=== PATIENT | female | born 1970 | race African-American/Black ===

== ENCOUNTER 2019-09-15 10:50 | Observation (INO) | payer MEDICARE, SELFPAY ==
--- NOTE | ~2019-09-15 | US_ITS ---
EXAMINATION: US soft tissue buttock RT DATE: 09/16/2019 13:03 INDICATION: Right buttock abscess. TECHNIQUE: Multiple grayscale and Doppler ultrasound images of the right buttock were obtained. COMPARISON: None FINDINGS: There is heterogeneous echogenicity of the subcutaneous fat in the right buttock. No absces s. IMPRESSION: 1. Heterogeneous echogenicity of the subcutaneous fat of the right buttock, consistent with inflammat ion. No abscess. Reviewed, dictated and finalized at location A. IMPRESSION: 1. Heterogeneous echogenicity of the subcutaneous fat of the right buttock, con sistent with inflammation. No abscess.
[2019-09-15 11:01] VITALS: BP 119/63; PULSE 110; RESP 16; TEMP 36.2; O2SAT 99
[2019-09-15 12:02] LABS: Basophils Percent Auto 0.2 % (0.2-1.2); Eosinophils Absolute Auto 0.4 K/mm3 (0-0.3); Eosinophils Percent Auto 3.9 % (0-4.4); Hematocrit 34.6 % (37.0-47.0); Hemoglobin 11.3 g/dL (12.0-15.0); Immature Granulocyte Absolute 0.05 K/mm3 (0.00-0.031); Immature Granulocyte Percent A 0.5 % (0-0.5); Lymphocytes Absolute Auto 1.99 K/mm3 (0.9-3.2); Mean Corpuscular HGB Conc 32.7 g/dl (32-36); Mean Corpuscular Hemoglobin 28.2 pg (26-34); Mean Corpuscular Volume 86.3 fl (80-100); Mean Platelet Volume 9.9 fl (7.4-10.4); Monocytes Absolute Auto 0.8 K/mm3 (0.1-0.6); Monocytes Percent Auto 7.5 % (2.6-8.5); Neutrophils Absolute Auto 7.2 K/mm3 (1.3-6.7); Neutrophils Percent Auto 68.9 % (45.5-73.1); Platelet Count Result 340 k/mm3 (150-375); Red Blood Count 4.01 M/mm3 (4.2-5.4); Red Cell Distribution Width 11.9 % (11.5-14.5); White Blood Count 10.5 K/mm3 (4.5-10.0)
[2019-09-15 12:16] LABS: Magnesium 1.4 mg/dL (1.6-2.3); Phosphorus 3.8 mg/dL (2.5-4.5)
[2019-09-15 12:18] LABS: Alanine Aminotransferase 22 U/L (4-35); Albumin Level 3.7 g/dL (3.5-5.1); Alkaline Phosphatase 140 U/L (38-126); Aspartate Amino Transferase 21 U/L (14-36); Bilirubin,Total 0.4 mg/dL (0.2-1.3); Blood Urea Nitrogen 5 mg/dL (7-17); Calcium 9.1 mg/dL (8.4-10.2); Carbon Dioxide 31 mmol/L (22-30); Chloride 96 mmol/L (98-107); Estimated CRCL calculation 145 ml/min; Estimated Glomerular Filt Rate > 60; Glucose 380 mg/dL (65-105); Potassium 3.8 mmol/L (3.4-5.0); Sodium 136 mmol/L (137-145)
[2019-09-15] MEDS: SODIUM CHLORIDE 0.9% IV 1,000 ML 999 ML IV CONT ×2 (12:20)
[2019-09-15 12:29] LABS: Beta-Hydroxybutyrate/Acetoacetate 0.22 mmol/L (0.02-0.27)
[2019-09-15 13:11] LABS: CRP 21.9 mg/dL (<1.0)
[2019-09-15] MEDS: MAGNESIUM SULF 2 GM/WATER 50ML 2 GM/50 ML BAG IVPB (13:42)
--- NOTE | 2019-09-15 14:17 | ED.GENADULT ---
HPI - General Adult General Chief complaint: Wound/Laceration <MARIA LUISA De La Cruz Last Filed: 09/15/19 14:37> Stated complaint: right leg wound <MARIA LUISA De La Cruz Last Filed: 09/15/19 14:37> Time Seen by Provider: 09/15/19 11:07 <MARIA LUISA De La Cruz Last Filed: 09/15/19 14:37> Source: patient <MARIA LUISA De La Cruz Last Filed: 09/15/19 14:37> Mode of arrival: ambulatory <MARIA LUISA De La Cruz Last Filed: 09/15/19 14:37> Limitations: no limitations <MARIA LUISA De La Cruz Last Filed: 09/15/19 14:37> History of Present Illness HPI narrative: Patient is a 48-year-old female who presents per private vehicle to emergency department for evaluation of wound to the right posterior thigh that is been present for 1 week gradually worsening patient notes some drainage on her close. Patient notes that during this period she has had some chills nausea and that her blood sugars have increased with levels as high as 500 patient on arrival to emergency department is in the room noting moderate aching pain. Patient has not taken anything for symptoms denies similar occurrence in the past <MARIA LUISA De La Cruz Last Filed: 09/15/19 14:37> Related Data Home medications: Home Medications Medication Instructions Recorded Confirmed Chava GoelPen U-100 Insulin 09/15/19 atorvastatin 10 mg PO DAILY 09/15/19 ferrous sulfate 325 mg PO DAILY 09/15/19 gabapentin 300 mg PO DAILY 09/15/19 lisinopril-hydrochlorothiazide 1 tablet PO DAILY 09/15/19 metformin 1,000 mg PO DAILY 09/15/19 naproxen 500 mg PO BID 09/15/19 omeprazole 20 mg PO DAILY 09/15/19 paroxetine HCl 10 mg PO QAM 09/15/19 <MARIA LUISA De La Cruz Last Filed: 09/15/19 14:37> Allergies/adverse reactions: Allergies Allergy/AdvReac Type Severity Reaction Status Date / Time No Known Allergies Allergy Verified 09/15/19 11:05 <MARIA LUISA De La Cruz Last Filed: 09/15/19 14:37> Review of Systems Review of Systems: All systems reviewed & are unremarkable except as noted in HPI and below <Salvador Hilton PA-C - Last Filed: 09/15/19 14:37> [facility] Past Medical History Medical History: Medical History (Updated 09/15/19 @ 14:37 by Salvador Hilton PA-C) Diabetes mellitus Obesity <Salvador Hilton PA-C - Last Filed: 09/15/19 14:37> Family History Family History: Family History (Updated 09/15/19 @ 16:08 by Mary Lou Merrill RN) Mother Heart failure Diabetes mellitus Father Diabetes mellitus Hypertension Dementia Sibling Diabetes mellitus <Salvador Hilton PA-C - Last Filed: 09/15/19 14:37> Social History Social History: Social History Years smoked: 3 Smoking status: Current every day smoker Tobacco type: cigarettes Alcohol intake: never Substance use: never Substance use type: does not use Gender identity (if verbalized by the patient): Female Sexual Orientation (if Verbalized by the Patient): Straight or Heterosexual <Salvador Hiltno PA-C - Last Filed: 09/15/19 14:37> Exam Narrative: Exam Narrative: GENERAL: Well-appearing, obese, and in no acute distress. HEAD: Normocephalic, atraumatic. EYES: PERRLA and EOMI. ENT: Nares clear, no rhinorrhea or epistaxis. Mucous membranes moist. CHEST: Clear to auscultation. No respiratory distress. No wheezes rales or rhonchi HEART: Regular rate and rhythm. No murmur heard. EXTREMITIES: Normal range of motion. No edema. SKIN: Warm, dry, no rash. Patient with red tender swollen slightly erythematous area to the right posterior thigh just below the buttock. Some clear drainage on the underwear NEURO: No focal deficits. Alert and oriented x3. PSYCH: Normal mood and affect. <Salvador Hilton PA-C - Last Filed: 09/15/19 14:37> Course Course Emergency Course: Patient in the room in no distress aware of case findings daniela
[2019-09-15 15:01] VITALS: BP 148/88; PULSE 88; RESP 20; TEMP 36.3; O2SAT 99
[2019-09-15 15:40] VITALS: BP 130/78; PULSE 88; RESP 18; O2SAT 98
--- NOTE | 2019-09-15 15:41 | PC.NURSE ---
pt transported to 2nd floor with Vancomycin still infusing.
--- NOTE | 2019-09-15 16:03 | ADMGEN ---
This patient, Meli Coley, was admitted to Medical Room 252-. Patient/family oriented to hospital policies and general routines including ID bracelet, bed and alarms, visiting hours, pain management, procedures, bathroom and other care routines, personal items, smoking policy, room service/diet, and visiting hours. Valuables list has been completed. Information on how to activate the Rapid Response Team has been discussed. Patient/Family are encouraged to report perceived risks to care and to ask questions if they do not understand what they are told or what they should do. Patient in bed resting comfortably at this time. Will continue to monitor patient.
[2019-09-15 16:06] VITALS: BP 123/67; PULSE 84; RESP 20; TEMP 36.3; O2SAT 100
[2019-09-15 16:08] VITALS: BMI 41.0
[2019-09-15 16:28] LABS: Glucose Point of Care 443 (65-105)
[2019-09-15] MEDS: INSULIN ASPART (*BKC) 100 UNITS/ML SUB-Q (17:03)
[2019-09-15] MEDS: COLLAGENASE OINT 30 GM TUBE 1 APPLIC TOPICAL (17:04)
--- NOTE | 2019-09-15 17:15 | PM.IMHP ---
H&P: HPI History of Present Illness Chief complaint: Cellulitis right leg Narrative: Meli Coley is a 48 year old female code has a history of having diabetes. She stated that she has had a boil on her right buttocks for at least 2 weeks. She thought it was a dry patch in kept trying to put lotion on it. She had her male friend look at it today and he told her that was getting worse. She stated that it was draining yellowish green drainage. She started to have fever and chills. The patient stated that her blood sugars have been in the 500s. She states that they are usually high but not that high. She would give exact numbers. The patient stated that she had this will on her butt for 2 weeks but it just started draining about a week ago. Wound care consult was placed and they have already reviewed the ulcerated area and [place] was prescribed. White count 10.5. H&H 11.3 and 34.5. The patient was given magnesium IV. Started on Primaxin and vancomycin. She was started on IV fluids as well. Date of service 09/15/2019 Review of Systems Review of Systems: All systems reviewed & are unremarkable except as noted in HPI and below Constitutional: Constitutional: Reports as per HPI and Reports no additional constitutional complaints Eyes: Eyes: Reports as per HPI and Reports no additional eye complaints ENT: Reports system reviewed and no additional complaints, except as documented and Reports Normal hearing present Cardiovascular: Cardiovascular: Reports no additional cardiovascular complaints Respiratory: Respiratory: Reports no additional respiratory complaints and Reports no additional respiratory complaints Gastrointestinal: Gastrointestinal: Reports as per HPI and Reports no additional gastrointestinal complaints Musculoskeletal: Musculoskeletal: Reports no additional musculoskeletal complaints Integumentary/Breasts: Skin/Breast: Reports system reviewed and no additional complaints, except as docu and Reports as per HPI Neurologic: Reports system reviewed and no additional complaints, except as documented, Reports as per HPI and Reports Normal hearing present Psychiatric: Psychiatric: Reports no additional psychiatric complaints and Reports as per HPI Endocrine: Endocrine: Reports no additional endocrine complaints Hematologic/Lymphatic: Hematologic/Lymphatic: Reports no additional hematologic/lymphatic complaints Allergic/Immunologic: Allergic/Immunologic: Reports no additional allergic/immunologic complaints [facility] Past Medical History Medical History (Updated 09/15/19 @ 17:30 by Mila Dewitt NP) Chronic GERD Depression Diabetes mellitus Insulin-dependent HTN (hypertension), malignant Hyperlipidemia Iron deficiency anemia Neuropathy 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 She is single. She has 4 children. She is currently not employed. She does not have a durable power attorney lawyer for health care and she desires to be a full code. She has a significant other. No marijuana or illicit drugs. No alcohol. Years smoked: 3 Smoking status: Current every day smoker Tobacco type: cigarettes Alcohol intake: never Substance use: never Substance use type: does not use Gender identity (if verbalized by the patient): Female Sexual Orientation (if Verbalized by the Patient): Straight or Heterosexual Meds Home Medications and Allergies Home Medications Medication Instructions Recorded Confirmed Type Bas
[2019-09-15 17:56] VITALS: BP 134/67; PULSE 87; RESP 20; TEMP 36.5; O2SAT 99
[2019-09-15] MEDS: FAMOTIDINE 20 MG/2 ML VIAL IV PUSH (20:11)
--- NOTE | 2019-09-15 20:53 | PHAR ---
HOME MED VERIFED ALTON LEVY 44 UNITS SUBQ AT BEDTIME
[2019-09-15 22:00] VITALS: BP 131/68; PULSE 89; RESP 16; TEMP 36.7; O2SAT 98
[2019-09-15 22:07] LABS: Glucose Point of Care 265 (65-105)
[2019-09-16] VITALS (7 sets, daily range): BP systolic 115–138; BP diastolic 50–85; PULSE 62–89; RESP 12–20; TEMP 36–36.8; O2SAT 98–99
[2019-09-16 05:10] LABS: Basophils Percent Auto 0.2 % (0.2-1.2); Eosinophils Absolute Auto 0.5 K/mm3 (0-0.3); Eosinophils Percent Auto 5.2 % (0-4.4); Hematocrit 30.1 % (37.0-47.0); Hemoglobin 9.8 g/dL (12.0-15.0); Immature Granulocyte Absolute 0.02 K/mm3 (0.00-0.031); Immature Granulocyte Percent A 0.2 % (0-0.5); Lymphocytes Absolute Auto 2.89 K/mm3 (0.9-3.2); Lymphocytes Percent Auto 33.4 % (18.3-44.2); Mean Corpuscular HGB Conc 32.6 g/dl (32-36); Mean Corpuscular Hemoglobin 28.3 pg (26-34); Mean Platelet Volume 9.5 fl (7.4-10.4); Monocytes Absolute Auto 0.8 K/mm3 (0.1-0.6); Monocytes Percent Auto 9.1 % (2.6-8.5); Neutrophils Absolute Auto 4.5 K/mm3 (1.3-6.7); Neutrophils Percent Auto 51.9 % (45.5-73.1); Platelet Count Result 307 k/mm3 (150-375); Red Blood Count 3.46 M/mm3 (4.2-5.4); Red Cell Distribution Width 11.9 % (11.5-14.5); White Blood Count 8.7 K/mm3 (4.5-10.0)
[2019-09-16 05:19] LABS: Blood Urea Nitrogen 5 mg/dL (7-17); Calcium 8.1 mg/dL (8.4-10.2); Carbon Dioxide 26 mmol/L (22-30); Chloride 99 mmol/L (98-107); Estimated CRCL calculation 168 ml/min; Estimated Glomerular Filt Rate > 60; Glucose 335 mg/dL (65-105); Potassium 3.6 mmol/L (3.4-5.0); Sodium 132 mmol/L (137-145)
[2019-09-16 08:00] LABS: Glucose Point of Care 314 (65-105)
[2019-09-16 08:33] LABS: Magnesium 1.7 mg/dL (1.6-2.3)
[2019-09-16] MEDS: INSULIN ASPART (*BKC) 100 UNITS/ML SUB-Q ×3 (08:41→18:08)
[2019-09-16] MEDS: FAMOTIDINE 20 MG/2 ML VIAL IV PUSH ×2 (08:43→22:11)
[2019-09-16] MEDS: NAPROXEN 500 MG TABLET PO ×2 (08:44→18:09)
[2019-09-16] MEDS: lisinopriL 20 MG TABLET PO (08:44)
[2019-09-16] MEDS: PANTOPRAZOLE 40 MG TABLET PO (08:44)
[2019-09-16] MEDS: hydroCHLOROthiazide 12.5 MG CAPSULE PO (08:44)
[2019-09-16] MEDS: GABAPENTIN 300 MG CAPSULE PO (08:44)
[2019-09-16] MEDS: ATORVASTATIN 10 MG TABLET PO (08:44)
[2019-09-16] MEDS: PARoxetine 10 MG TABLET PO (08:44)
[2019-09-16] MEDS: CALCIUM CARBONATE (OSCAL) 500 MG TABLET PO (08:44)
[2019-09-16] MEDS: COLLAGENASE OINT 30 GM TUBE 1 APPLIC TOPICAL (08:45)
[2019-09-16] MEDS: FERROUS SULFATE 324 MG TABLET PO (09:27)
[2019-09-16] MEDS: metFORMIN HCL 500 MG TABLET 1000 MG PO (09:27)
--- NOTE | 2019-09-16 10:54 | PM.IMPN ---
Progress Note: A&P Assessment and Plan (1) Infected skin ulcer limited to breakdown of skin: Code(s): L98.491 - Non-pressure chronic ulcer of skin of other sites limited to breakdown of skin; L08.9 - Local infection of the skin and subcutaneous tissue, unspecified Status: Acute Assessment and Plan: Patient has an open wound to right buttock area which seems to be the source of her infection. Wound care evaluated the patient and recommended applying daily Santyl ointment to open wound and cover with a Mepilex border dressing. patient was started on IV antibiotics which included vancomycin and Primaxin leukocytosis [place] [address]72 to 8700 within normal range. Her CRP was elevated at 21.9 on arrival. Due to her wound and fluctuance I will order a ultrasound of the area to rule out any underlying abscess. Continue IV antibiotics overnight and monitor her labs and CRP levels. If everything is stable in the morning she could potentially be discharged home to follow-up with wound care as an outpatient continue monitoring patient's symptoms. (2) Diabetes mellitus: Code(s): E11.9 - Type 2 diabetes mellitus without complications Status: Chronic Assessment and Plan: her serum glucose this morning was 338. will continue her oral metformin and 44 units of long-acting insulin HS will add sliding scale insulin due to her elevated glucose I would like to continue monitoring her overnight and make adjustments to her diabetes regiment will check a hemoglobin A1c in the Morning Will consult system programmer as well as the dietitian for uncontrolled diabetes continue monitoring patient's glucose ACHS. hypoglycemic protocol in place. (3) HTN (hypertension), malignant: Code(s): I10 - Essential (primary) hypertension Status: Acute Assessment and Plan: blood pressure has been stable. Continue with lisinopril and hydrochlorothiazide. (4) Hyperlipidemia: Code(s): E78.5 - Hyperlipidemia, unspecified Status: Chronic Assessment and Plan: Continue with atorvastatin (5) Depression: Code(s): F32.9 - Major depressive disorder, single episode, unspecified Status: Chronic Assessment and Plan: Continue with Paxil. (6) Chronic GERD: Code(s): K21.9 - Gastro-esophageal reflux disease without esophagitis Status: Chronic Assessment and Plan: Continue with omeprazole. (7) Neuropathy: Code(s): G62.9 - Polyneuropathy, unspecified Status: Chronic Assessment and Plan: Continue with gabapentin. (8) Iron deficiency anemia: Code(s): D50.9 - Iron deficiency anemia, unspecified Status: Chronic Assessment and Plan: Continue with ferrous sulfate. Time Spent With Patient Time with patient: 25 - 35 minutes Subjective Date/time seen: 09/16/19 10:54 Interval history: Date of Service 09/16/2019: The patient states she is feeling much better today. She is not having any fevers, chills and her pain is improved to her left buttocks. She denies much drainage from her left buttocks as well. She denies any chest pain, shortness of breath, cough, nausea, vomiting, abdominal pain, leg swelling, calf pain or any other symptoms at this time. Review of Systems Review of Systems: All systems reviewed & are unremarkable except as noted in HPI and below Exam Narrative: Exam Narrative: General: 48-year-old woman laying on her left side in bed. Appears comfortable. In no acute distress. Skin: There is a 4 cm b
[2019-09-16 11:30] LABS: Glucose Point of Care 327 (65-105)
[2019-09-16] MEDS: MAGNESIUM SULF 2 GM/WATER 50ML 2 GM/50 ML BAG IVPB (11:55)
[2019-09-16 16:54] LABS: Glucose Point of Care 327 (65-105)
--- NOTE | 2019-09-16 17:03 | PCDIET ---
Nutrition Consult Complete: Pt current nutrition is [facility] Nutrition recommendation: Agree Last recorded weight is 108.4 kg. Additional Notes: Pt with uncontrolled DM. On an DBCC diet. Glucose 327 today. No A1c. Pt on insulin at home but was not aware of what a carb or protein were. Intake here is good, 100%x3. She does like most protein and veggies. Handout and edu given on a consistent carb diet. We reviewed where carbs are found and how carbs effect blood sugar. We discussed my plate method of meal planning with focus on non starchy veggies and protein with up to 45g of carbs (approx 3 fists) at each meal. We reviewed label reading for finding carbs on a label. We will continue to monitor every seven days.
[2019-09-16 22:23] LABS: Glucose Point of Care 302 (65-105)
[2019-09-17] VITALS: BP 139/75; PULSE 70; RESP 18; TEMP 36.2; O2SAT 100
[2019-09-17 01:33] LABS: Vancomycin Trough 9.6 ug/mL (10.0-20.0)
[2019-09-17 04:00] VITALS: BP 147/72; PULSE 81; RESP 20; TEMP 36.4; O2SAT 100
[2019-09-17 05:28] LABS: Basophils Percent Auto 0.6 % (0.2-1.2); Eosinophils Absolute Auto 0.8 K/mm3 (0-0.3); Eosinophils Percent Auto 11.1 % (0-4.4); Hemoglobin 10.6 g/dL (12.0-15.0); Immature Granulocyte Absolute 0.04 K/mm3 (0.00-0.031); Immature Granulocyte Percent A 0.6 % (0-0.5); Lymphocytes Absolute Auto 2.54 K/mm3 (0.9-3.2); Lymphocytes Percent Auto 35.2 % (18.3-44.2); Mean Corpuscular HGB Conc 32.1 g/dl (32-36); Mean Corpuscular Volume 87.3 fl (80-100); Mean Platelet Volume 9.4 fl (7.4-10.4); Monocytes Absolute Auto 0.5 K/mm3 (0.1-0.6); Monocytes Percent Auto 7.1 % (2.6-8.5); Neutrophils Absolute Auto 3.3 K/mm3 (1.3-6.7); Neutrophils Percent Auto 45.4 % (45.5-73.1); Platelet Count Result 352 k/mm3 (150-375); Red Blood Count 3.78 M/mm3 (4.2-5.4); Red Cell Distribution Width 11.8 % (11.5-14.5); White Blood Count 7.2 K/mm3 (4.5-10.0)
[2019-09-17 05:39] LABS: Blood Urea Nitrogen 7 mg/dL (7-17); Calcium 8.6 mg/dL (8.4-10.2); Carbon Dioxide 28 mmol/L (22-30); Chloride 100 mmol/L (98-107); Estimated CRCL calculation 168 ml/min; Estimated Glomerular Filt Rate > 60; Glucose 334 mg/dL (65-105); Magnesium 1.7 mg/dL (1.6-2.3); Sodium 134 mmol/L (137-145)
[2019-09-17 05:49] LABS: CRP 12.6 mg/dL (<1.0)
[2019-09-17 06:45] LABS: Hemoglobin A1C > 14.0 % (<5.7)
[2019-09-17 07:46] LABS: Glucose Point of Care 272 (65-105)
[2019-09-17 08:00] VITALS: PULSE 81; RESP 20; O2SAT 100
[2019-09-17] MEDS: CALCIUM CARBONATE (OSCAL) 500 MG TABLET PO (09:19)
[2019-09-17] MEDS: COLLAGENASE OINT 30 GM TUBE 1 APPLIC TOPICAL (09:19)
[2019-09-17] MEDS: NAPROXEN 500 MG TABLET PO ×2 (09:19→16:53)
[2019-09-17] MEDS: PARoxetine 10 MG TABLET PO (09:20)
[2019-09-17] MEDS: FERROUS SULFATE 324 MG TABLET PO (09:20)
[2019-09-17] MEDS: metFORMIN HCL 500 MG TABLET 1000 MG PO (09:20)
[2019-09-17] MEDS: GABAPENTIN 300 MG CAPSULE PO (09:20)
[2019-09-17] MEDS: lisinopriL 20 MG TABLET PO (09:20)
[2019-09-17] MEDS: hydroCHLOROthiazide 12.5 MG CAPSULE PO (09:20)
[2019-09-17] MEDS: ATORVASTATIN 10 MG TABLET PO (09:20)
[2019-09-17] MEDS: PANTOPRAZOLE 40 MG TABLET PO (09:20)
[2019-09-17] MEDS: INSULIN ASPART (*BKC) 100 UNITS/ML SUB-Q ×2 (09:21→12:15)
[2019-09-17 10:00] VITALS: BP 132/67; PULSE 73; RESP 16; TEMP 36.3; O2SAT 98
[2019-09-17] MEDS: FAMOTIDINE 20 MG/2 ML VIAL IV PUSH (10:44)
[2019-09-17 11:05] VITALS: BMI 41.0
[2019-09-17] MEDS: INSULIN ASPART (*BKC) 100 UNITS/ML 7 UNITS SUB-Q (12:16)
[2019-09-17 12:21] LABS: Glucose Point of Care 329 (65-105)
[2019-09-17 14:00] VITALS: BP 147/69; PULSE 78; RESP 16; TEMP 36.3; O2SAT 100
--- NOTE | 2019-09-17 15:36 | PM.DS ---
DS: Admitting Diagnosis Admitting Diagnosis Admitting Diagnosis: Non-pressure chronic ulcer of skin of other sites limited to breakdown of skin DS: Discharge Diagnosis Discharge Diagnosis (1) Infected skin ulcer limited to breakdown of skin: Code(s): L98.491 - Non-pressure chronic ulcer of skin of other sites limited to breakdown of skin; L08.9 - Local infection of the skin and subcutaneous tissue, unspecified Status: Acute Assessment and Plan: Patient has an open wound to right buttock area which seems to be the source of her infection. Wound care evaluated the patient and recommended applying daily Santyl ointment to open wound and cover with a Mepilex border dressing. patient was started on IV antibiotics which included vancomycin and Primaxin leukocytosis [place] [address] to 7200 within normal range. Her CRP was elevated at 21.9 on arrival and improved to 12.4 today with IV antibiotics. US of wound showed no findings of abscess. Wound care does not feel she needs to follow up with them outpatient and requests for her to just see her doctor for wound monitoring. She is feeling much better at this time without any complaints. Wound is looking better and will need to continue with dressing changes daily. She is stable for discharge home to continue on oral antibiotics, Levaquin and Doxycycline for broad spectrum coverage.She will need to follow-up with her primary care provider within 1 week. Patient understands and agrees with the plan all questions answered. (2) Diabetes mellitus: Code(s): E11.9 - Type 2 diabetes mellitus without complications Status: Chronic Assessment and Plan: her serum glucose this morning was 334. Hemoglobin A1c was greater than 14 which is not well controlled at all. She had not been receiving her 44 units of long-acting insulin while here. Will have her continue her oral metformin and 44 units of long-acting insulin HS Our early childhood educator aide and dietitian came to talk to the patient and educated her on diabetes. Patient states she has a glucometer and lancets, needles and everything that she needs to check her sugars daily. She feels comfortable checking it 5 times a day and will continue doing after discharge. (3) HTN (hypertension), malignant: Code(s): I10 - Essential (primary) hypertension Status: Acute Assessment and Plan: blood pressure has been stable. Continue with lisinopril and hydrochlorothiazide. (4) Hyperlipidemia: Code(s): E78.5 - Hyperlipidemia, unspecified Status: Chronic Assessment and Plan: Continue with atorvastatin (5) Depression: Code(s): F32.9 - Major depressive disorder, single episode, unspecified Status: Chronic Assessment and Plan: Continue with Paxil. (6) Chronic GERD: Code(s): K21.9 - Gastro-esophageal reflux disease without esophagitis Status: Chronic Assessment and Plan: Continue with omeprazole. (7) Neuropathy: Code(s): G62.9 - Polyneuropathy, unspecified Status: Chronic Assessment and Plan: Continue with gabapentin. (8) Iron deficiency anemia: Code(s): D50.9 - Iron deficiency anemia, unspecified Status: Chronic Assessment and Plan: Continue with ferrous sulfate. DS: Summary Hospital Course Reason for hospitalization: Patient is a 48-year-old woman with a history of uncontrolled diabetes, who presented to the emergency room with worsening pain, redness and discharge to her wound on her right buttock
[2019-09-17 16:29] LABS: Glucose Point of Care 118 (65-105)
--- NOTE | 2019-09-22 11:23 | PC.NURSE ---
patient dc on levoquin and doxy.
== END 2019-09-17 18:28 | disposition home or self-care (01) ==
LOC: ANHED 14:37 → ANH2MED 14:53
PROVIDERS: Emergency Medicine Emergency Medical Services; Physician Assistant; Admitting Provider Family Medicine; Emergency Provider General Practice; PCP Internal Medicine; Visit Provider Family Medicine
DX: E11.622 Type 2 diabetes mellitus with other skin ulcer (principal); L97.121 Non-pressure chronic ulcer of left thigh limited to breakdown of skin; L08.9 Local infection of the skin and subcutaneous tissue, unspecified; B95.1 Streptococcus, group B, as the cause of diseases classified elsewhere; B95.62 Methicillin resistant Staphylococcus aureus infection as the cause of diseases classified elsewhere; F32.9 Major depressive disorder, single episode, unspecified; I10 Essential (primary) hypertension; E78.5 Hyperlipidemia, unspecified; D50.9 Iron deficiency anemia, unspecified; E11.40 Type 2 diabetes mellitus with diabetic neuropathy, unspecified; K21.9 Gastro-esophageal reflux disease without esophagitis; F17.210 Nicotine dependence, cigarettes, uncomplicated; E66.01 Morbid (severe) obesity due to excess calories; Z68.41 Body mass index [BMI] 40.0-44.9, adult; Z79.84 Long term (current) use of oral hypoglycemic drugs
CPT/HCPCS: 36415; 76705; 80048; 80053; 80202; 82010; 82948; 83036; 83735; 84100; 85025; 86140; 87040; 87070; 87147; 87186; 87205; 96365; 96366; 96367; 96375; 96376; 99285; A9270; G0378; J0131; J0743; J1815; J3370; J3475; J7030

== ENCOUNTER 2019-09-23 15:47 | Emergency (ER) | payer MEDICARE, SELFPAY ==
[2019-09-23 15:49] VITALS: BP 158/74; PULSE 79; RESP 20; TEMP 37.4; O2SAT 99
--- NOTE | 2019-09-23 16:34 | ED.SKABFB ---
HPI - Skin/Abscess/Foreign Bdy General Chief complaint: Skin/Abscess/Foreign Body Stated complaint: Boil to buttock Time Seen by Provider: 09/23/19 16:11 Source: patient Mode of arrival: ambulatory History of Present Illness HPI narrative: This is a 48-year-old female that presents the emergency department for drainage from right buttock wound that she has noted since yesterday. Reports she was recently admitted for cellulitis of this wound. Was discharged home on oral antibiotics. She did not vegetable picker these antibiotics until yesterday. Reports her blood sugars have been in the 200s. She has an appointment to follow-up with her primary at the end of this week. Denies fever, erythema, or edema. Related Data Home Medications Medication Instructions Recorded Confirmed Basaglar KwikPen U-100 Insulin 44 units HS 09/15/19 09/15/19 atorvastatin 10 mg PO DAILY 09/15/19 09/15/19 calcium carbonate [Calcium 600] 600 mg PO DAILY 09/15/19 09/15/19 ferrous sulfate 325 mg PO DAILY 09/15/19 09/15/19 gabapentin 300 mg PO DAILY 09/15/19 09/15/19 lisinopril-hydrochlorothiazide 1 tablet PO DAILY 09/15/19 09/15/19 metformin 1,000 mg PO DAILY 09/15/19 09/15/19 naproxen 500 mg PO BID 09/15/19 09/15/19 omeprazole 20 mg PO DAILY 09/15/19 09/15/19 paroxetine HCl 10 mg PO DAILY 09/15/19 09/15/19 Allergies Allergy/AdvReac Type Severity Reaction Status Date / Time No Known Allergies Allergy Verified 09/15/19 11:05 Review of Systems Review of Systems: Narrative: CONSTITUTIONAL: Denies fever SKIN: Reports wound All systems reviewed & are unremarkable except as noted in HPI and below PMFSH Past Medical History Medical History (Updated 09/23/19 @ 16:59 by Maddy Christian PA-C) Chronic GERD Depression Diabetes mellitus Insulin-dependent HTN (hypertension), malignant Hyperlipidemia Iron deficiency anemia Neuropathy 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 She is single. She has 4 children. She is currently not employed. She does not have a durable power tax associate attorney for health care and she desires to be a full code. She has a significant other. No marijuana or illicit drugs. No alcohol. Years smoked: 3 Smoking status: Current every day smoker Tobacco type: cigarettes Alcohol intake: never Substance use: never Substance use type: does not use Gender identity (if verbalized by the patient): Female Exam Narrative: Exam Narrative: GENERAL: Well-appearing, well-nourished, and in no acute distress. HEAD: Normocephalic, atraumatic. EYES: EOMI. EXTREMITIES: Normal range of motion. No edema. Right gluteal fold with 7 cm skin ulceration. No surrounding erythema or edema. No abnormal drainage. SKIN: Warm, dry, no rash. NEURO: No focal deficits. Alert and oriented x3. PSYCH: Normal mood and affect Course Vital Signs Vital signs: Vital Signs Temperature 99.4 F 09/23/19 15:49 Pulse Rate 79 09/23/19 15:49 Respiratory Rate 20 09/23/19 15:49 Blood Pressure 158/74 H 09/23/19 15:49 Pulse Oximetry 99 09/23/19 15:49 Temperature 99.4 F 09/23/19 15:49 Pulse Rate 79 09/23/19 15:49 Respiratory Rate 20 09/23/19 15:49 Blood Pressure 158/74 H 09/23/19 15:49 Pulse Oximetry 99 09/23/19 15:49 MDM - Skin/Abscess/Foreign Bdy MDM Narrative Medical decision making narrative: Patient presents to the emergency department for right leg wound, which she was recently admitted here and given IV antibiotics. Upon discharge she was supposed to be taking levofloxacin and doxycycline. She did not fill these until yesterday. Patient is afebrile and nontoxic-appearing. No obvious signs of infection on exam. Patient's wound was c
[2019-09-23 17:54] VITALS: BP 142/70; PULSE 80; RESP 20; O2SAT 99
== END 2019-09-23 17:56 | disposition home or self-care (01) ==
PROVIDERS: Emergency Provider Emergency Medicine; PCP Internal Medicine
DX: E11.40 Type 2 diabetes mellitus with diabetic neuropathy, unspecified (principal); E11.622 Type 2 diabetes mellitus with other skin ulcer; L98.419 Non-pressure chronic ulcer of buttock with unspecified severity; Z79.84 Long term (current) use of oral hypoglycemic drugs; K21.9 Gastro-esophageal reflux disease without esophagitis; I10 Essential (primary) hypertension; E78.5 Hyperlipidemia, unspecified; D50.9 Iron deficiency anemia, unspecified; E66.9 Obesity, unspecified; Z68.34 Body mass index [BMI] 34.0-34.9, adult; F17.210 Nicotine dependence, cigarettes, uncomplicated
CPT/HCPCS: 99282

== ENCOUNTER 2019-10-21 12:48 | Emergency (ER) | payer MEDICARE, SELFPAY ==
[2019-10-21 12:55] VITALS: BP 109/75; PULSE 89; RESP 17; TEMP 35.9; O2SAT 100
--- NOTE | 2019-10-21 15:35 | ED.ALLEREA ---
HPI - Allergic Reaction General Chief complaint: Allergic Reaction Stated complaint: allergic reaction Time Seen by Provider: 10/21/19 13:14 History of Present Illness HPI narrative: Patient is a 48-year-old female who presents the ER with sloughing of her skin. She reports since starting an antibiotic 3 weeks ago for a leg wound she started having skin peel off of her hands on the palmar aspect. He also extends around to the back of her hands and involves her waist and abdomen and feet. She seen her PCP who switched her from her original antibiotic to doxycycline which she completed 1 week ago. She has also been applying triamcinolone cream to her hands as well as clotrimazole and clindamycin to her under her breasts. No purulent drainage or redness. Denies any exposures to harsh chemicals or persistent washing of the hands. Related Data Home Medications Medication Instructions Recorded Confirmed Basaglar KwikPen U-100 Insulin 44 units HS 09/15/19 09/15/19 atorvastatin 10 mg PO DAILY 09/15/19 09/15/19 calcium carbonate [Calcium 600] 600 mg PO DAILY 09/15/19 09/15/19 ferrous sulfate 325 mg PO DAILY 09/15/19 09/15/19 gabapentin 300 mg PO DAILY 09/15/19 09/15/19 lisinopril-hydrochlorothiazide 1 tablet PO DAILY 09/15/19 09/15/19 metformin 1,000 mg PO DAILY 09/15/19 09/15/19 naproxen 500 mg PO BID 09/15/19 09/15/19 omeprazole 20 mg PO DAILY 09/15/19 09/15/19 paroxetine HCl 10 mg PO DAILY 09/15/19 09/15/19 Allergies Allergy/AdvReac Type Severity Reaction Status Date / Time No Known Allergies Allergy Verified 09/15/19 11:05 Review of Systems Review of Systems: All systems reviewed & are unremarkable except as noted in HPI and below Constitutional: Constitutional: Denies chills, Denies fever(s) and Denies weakness Gastrointestinal: Gastrointestinal: Denies nausea and Denies vomiting Integumentary/Breasts: Skin/Breast: Denies pruritus, Denies erythema and Reports rash PMFSH Past Medical History Medical History (Updated 10/21/19 @ 15:41 by Nehemias Khan MD) Chronic GERD Depression Diabetes mellitus Insulin-dependent HTN (hypertension), malignant Hyperlipidemia Iron deficiency anemia Neuropathy 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 She is single. She has 4 children. She is currently not employed. She does not have a durable power assistant attorney general for health care and she desires to be a full code. She has a significant other. No marijuana or illicit drugs. No alcohol. Years smoked: 3 Smoking status: Current every day smoker Tobacco type: cigarettes Alcohol intake: never Substance use: never Substance use type: does not use Gender identity (if verbalized by the patient): Female Exam Narrative: Exam Narrative: GENERAL: Well-appearing, well-nourished, and in no acute distress. HEAD: Normocephalic, atraumatic. CHEST: Clear to auscultation. No respiratory distress. HEART: Regular rate and rhythm. Normal peripheral pulses. EXTREMITIES: Normal range of motion. No edema. SKIN: Warm, dry. Dry flaking skin over the hips of the back and her upper chest. Patient's palms have large thick peeling skin wrapping around to the volar aspect of the hand and extending into the fingers. No pustules or vesicles. No evidence of cellulitis. NEURO: Alert and oriented x3. PSYCH: Normal mood and affect. Course Course Emergency Course: Appears similar to dyshidrotic eczema. Recommend continue steroid cream and follow-up with a engineering mgr. Not consistent with SJS or TPN. Vital Signs Vital signs: Vital Signs Temperature 96.6 F L 10/21/19 12:55 Pulse Rate 89 10/21/19 12:55 Respiratory Rate 17 10/21/19 12:55 Blood
[2019-10-21 15:52] VITALS: BP 118/76; PULSE 78; RESP 16; O2SAT 100
== END 2019-10-21 15:52 | disposition home or self-care (01) ==
PROVIDERS: Emergency Provider Emergency Medicine; PCP Internal Medicine
DX: L30.9 Dermatitis, unspecified (principal); K21.9 Gastro-esophageal reflux disease without esophagitis; F32.9 Major depressive disorder, single episode, unspecified; E11.9 Type 2 diabetes mellitus without complications; Z79.4 Long term (current) use of insulin; I10 Essential (primary) hypertension; E78.5 Hyperlipidemia, unspecified; F17.210 Nicotine dependence, cigarettes, uncomplicated
CPT/HCPCS: 99281

== ENCOUNTER 2022-01-15 16:31 | Emergency (ER) | payer MEDICARE, MEDICAID, SELFPAY ==
[2022-01-15] VITALS (12 sets, daily range): BP systolic 81–115; BP diastolic 56–86; PULSE 83–96; RESP 12–18; TEMP 36.6; O2SAT 94–99
--- NOTE | ~2022-01-15 | XR_ITS ---
EXAMINATION: XR chest 1V portable Exam Date/Time: 01/15/2022 19:20 PROCESSING REP HISTORY: cough, hypotensive; hx of DM Comparison: None available. RESULT: Lines, tubes, and devices: None. Lungs and pleura: Low lung volumes. rNo focal consolidation or pneumothorax. Cardiomediastinal silhouette: Mildly dilated central pulmonary arteries, as can be seen with pulmona ry arterial hypertension. Other: No acute osseous or upper abdominal finding. IMPRESSION: No acute cardiopulmonary process. Reviewed, dictated and finalized at location K. ESSING REP
[2022-01-15 18:13] LABS: Basophils Percent Auto 0.2 % (0.2-1.2); Eosinophils Absolute Auto 0.2 K/mm3 (0-0.3); Eosinophils Percent Auto 2.8 % (0-4.4); Hematocrit 37.3 % (37.0-47.0); Hemoglobin 12.5 g/dL (12.0-15.0); Immature Granulocyte Absolute 0.03 K/mm3 (0.00-0.031); Immature Granulocyte Percent A 0.4 % (0-0.5); Lymphocytes Absolute Auto 3.93 K/mm3 (0.9-3.2); Lymphocytes Percent Auto 46.6 % (18.3-44.2); Mean Corpuscular HGB Conc 33.5 g/dl (32-36); Mean Corpuscular Hemoglobin 29.1 pg (26-34); Mean Corpuscular Volume 86.7 fl (80-100); Mean Platelet Volume 9.6 fl (7.4-10.4); Monocytes Absolute Auto 0.6 K/mm3 (0.1-0.6); Monocytes Percent Auto 7.2 % (2.6-8.5); Neutrophils Absolute Auto 3.6 K/mm3 (1.3-6.7); Neutrophils Percent Auto 42.8 % (45.5-73.1); Platelet Count Result 322 k/mm3 (150-375); Red Cell Distribution Width 12.4 % (11.5-14.5); White Blood Count 8.4 K/mm3 (4.5-10.0)
[2022-01-15 18:25] LABS: Alanine Aminotransferase 24 U/L (6-35); Albumin Level 4.1 g/dL (3.5-5.1); Alkaline Phosphatase 117 U/L (38-126); Anion Gap 11 mmol/L (8-16); Aspartate Amino Transferase 27 U/L (14-36); Bilirubin,Total 0.4 mg/dL (0.2-1.3); Blood Urea Nitrogen 31 mg/dL (7-17); Calcium 9.2 mg/dL (8.4-10.2); Carbon Dioxide 29 mmol/L (22-30); Chloride 100 mmol/L (98-107); Estimated CRCL calculation 98 ml/min; Estimated Glomerular Filt Rate > 60; Glucose 129 mg/dL (65-110); Magnesium 1.9 mg/dL (1.6-2.3); Phosphorus 3.5 mg/dL (2.5-4.5); Potassium 3.5 mmol/L (3.4-5.0); Sodium 140 mmol/L (137-145)
[2022-01-15 18:29] LABS: Beta-Hydroxybutyrate/Acetoacetate 0.07 mmol/L (0.02-0.27)
[2022-01-15 18:46] LABS: Appearance Urine Slightly Cloudy (Clear); Bilirubin Urine Negative (Negative); Blood Urine Negative (Negative); Color Urine Yellow (Yellow); Glucose Urine UA 3+ mg/dL (Negative); Ketones Urine Negative (Negative); Leukocyte Esterase Ur Negative LEU/UL (Negative); Nitrate Urine Negative (Negative); Protein Urine Negative (Negative); Specific Grav Ur 1.015 (1.001-1.035); Urobilinogen Urine 0.2 mg/dL (<2.0)
[2022-01-15 18:49] LABS: Mucus Urine Rare /lpf; Squamous Epithelial Cell Urine Occasional /hpf (Few)
[2022-01-15 18:51] LABS: Add Urine Microscopic? YES
[2022-01-15] MEDS: ONDANSETRON HCL ODT 4 MG TABLET PO (19:15)
[2022-01-15] MEDS: LACTATED RINGERS 1,000 ML 999 ML IV CONT (19:15)
--- NOTE | 2022-01-15 19:23 | ED.RECABL ---
HPI - Recheck/Abnormal Lab/Rx General Chief Complaint: Recheck/Abnormal Lab/Rx Stated Complaint: weakness; hyperglycemia Time Seen by Provider: 01/15/22 19:04 History of Present Illness HPI narrative: Patient was at work when her colleague thought that she was not looking very good, she states that she was feeling slightly nauseous and worried that her blood sugar was high and that she did give herself some extra insulin today. States she hasn't really eaten or drank much today. Endorses slight cough, but no chest pain, difficulty breathing, abdominal pain, dysuria. Related Data Home Medications Medication Instructions Recorded Confirmed Basaglar KwikPen U-100 Insulin 44 units HS 09/15/19 09/15/19 atorvastatin 10 mg tablet 10 mg PO DAILY 09/15/19 09/15/19 calcium carbonate 600 mg calcium 600 mg PO DAILY 09/15/19 09/15/19 (1,500 mg) tablet (Calcium) ferrous sulfate 325 mg (65 mg 325 mg PO DAILY 09/15/19 09/15/19 iron) tablet gabapentin 300 mg capsule 300 mg PO DAILY 09/15/19 09/15/19 lisinopril 20 1 tablet PO DAILY 09/15/19 09/15/19 mg-hydrochlorothiazide 12.5 mg tablet metformin 1,000 mg tablet 1,000 mg PO DAILY 09/15/19 09/15/19 naproxen 500 mg tablet 500 mg PO BID 09/15/19 09/15/19 omeprazole 20 mg tablet,delayed 20 mg PO DAILY 09/15/19 09/15/19 release paroxetine HCl 10 mg tablet 10 mg PO DAILY 09/15/19 09/15/19 Allergies Allergy/AdvReac Type Severity Reaction Status Date / Time No Known Allergies Allergy Verified 01/15/22 18:07 Review of Systems Review of Systems: CONST: Tired HEENT: No sore throat C/V: No chest pain RESP: Slight cough GI: Reports nausea : No dysuria. M/S: No joint pain. SKIN: No rash. NEURO: [No headache or focal numbness or weakness] PSYCH: [No depression] [facility] Past Medical History Medical History Chronic GERD Depression Diabetes mellitus Insulin-dependent HTN (hypertension), malignant Hyperlipidemia Iron deficiency anemia Neuropathy Hands and feet secondary to diabetes Obesity Surgical History Surgical History H/O tubal ligation Family History Family History Mother Heart failure Diabetes mellitus Father Diabetes mellitus Hypertension Dementia Sibling Diabetes mellitus Social History Social History Social History: The patient told me that she is down to a couple cigarettes a day. She is single. She has 4 children. She is currently not employed. She does not have a durable power trademark attorney for health care and she desires to be a full code. She has a significant other. No marijuana or illicit drugs. No alcohol. Years smoked: 3 Smoking status: Current every day smoker Tobacco type: cigarettes Alcohol intake: never Substance use: never Substance use type: does not use Gender identity (if verbalized by the patient): Female Sexual Orientation (if Verbalized by the Patient): Straight or Heterosexual Exam Narrative: EXAMINATION OF ORGAN SYSTEMS/BODY AREAS: Constitutional: Vital signs per nursing GENERAL:[No acute distress, non-toxic appearing.] HEAD: Normal with no signs of head trauma. EYES: EOMI, conjunctiva normal ENT: Hearing grossly intact LUNGS: Nonlabored breathing. HEART: [Regular rate and rhythm] ABD: [Soft], [nontender to palpation] EXT: Normal range of motion SKIN: [No rashes or lesions.] NEURO: [Alert and oriented x 3. No gross focal sensory or strength deficits.] PSYCH: Normal affect Course Vital Signs Vital signs: Vital Signs Temperature 98 F 01/15/22 16:42 Pulse Rate 96 01/15/22 16:42 Respiratory Rate 18 01/15/22 16:42 Blood Pressure 101/86 01/15/22 16:42 Pulse Oximetry 96 01/15/22 16:42 Temperature 98 F 01/15/22 16:42 Pulse Rate 85 01/15/22 19:31 Respiratory Rate 15
[2022-01-15 19:29] LABS: Glucose Point of Care 128 mg/dl (65-105)
[2022-01-15] MEDS: FAMOTIDINE 20 MG TABLET PO (19:39)
[2022-01-15 19:49] LABS: Lactic Acid Reflex 1.4 mmol/L (0.7-2.0)
[2022-01-15 20:32] LABS: Influenza A QL RT-PCR Negative (Negative); Influenza B QL RT-PCR Negative (Negative); RSV RNA, RT-PCR Negative (Negative); SARS-CoV-2 RNA PCR Negative
== END 2022-01-15 20:18 | disposition home or self-care (01) ==
PROVIDERS: Emergency Medicine; Emergency Provider Emergency Medicine; PCP Internal Medicine
DX: E11.40 Type 2 diabetes mellitus with diabetic neuropathy, unspecified (principal); R53.83 Other fatigue; K21.9 Gastro-esophageal reflux disease without esophagitis; Z79.84 Long term (current) use of oral hypoglycemic drugs; I10 Essential (primary) hypertension; E78.5 Hyperlipidemia, unspecified; F32.A Depression, unspecified; E66.9 Obesity, unspecified; Z68.32 Body mass index [BMI] 32.0-32.9, adult; F17.210 Nicotine dependence, cigarettes, uncomplicated; Z86.2 Personal history of diseases of the blood and blood-forming organs and certain disorders involving the immune mechanism; Z79.4 Long term (current) use of insulin; Z20.822 Contact with and (suspected) exposure to COVID-19
CPT/HCPCS: 36415; 71045; 80053; 81001; 81025; 82010; 82948; 83605; 83735; 84100; 85025; 87637; 96360; 99283; A9270; J7120

== ENCOUNTER 2022-05-10 15:32 | Emergency (ER) | payer OTHER, SELFPAY ==
[2022-05-10 15:35] VITALS: BP 148/72; PULSE 110; RESP 20; TEMP 36.9; O2SAT 97
[2022-05-10] MEDS: diphenhydrAMINE HCl CAP 25 MG CAPSULE PO (17:00)
--- NOTE | 2022-05-10 17:41 | ED.GENADULT ---
HPI - General Adult General Chief complaint: Allergic Reaction Stated complaint: hives from clindamycin Time Seen by Provider: 05/10/22 16:23 History of Present Illness HPI narrative: Patient is a 51-year-old female who presents ER with rash. Has had a red rash for couple days but started having peeling of her chest and abdominal wall today. She has been on clindamycin for a possible infection to her great toe on the left side. She reports her toes better. No fevers or chills or sweats. No difficulty breathing or swallowing. She has some dry skin in the corners of her mouth that causes some pain when she opens wide. Related Data Home Medications Medication Instructions Recorded Confirmed Basaglar KwikPen U-100 Insulin 44 units HS 09/15/19 09/15/19 atorvastatin 10 mg tablet 10 mg PO DAILY 09/15/19 09/15/19 calcium carbonate 600 mg calcium 600 mg PO DAILY 09/15/19 09/15/19 (1,500 mg) tablet (Calcium) ferrous sulfate 325 mg (65 mg 325 mg PO DAILY 09/15/19 09/15/19 iron) tablet gabapentin 300 mg capsule 300 mg PO DAILY 09/15/19 09/15/19 lisinopril 20 1 tablet PO DAILY 09/15/19 09/15/19 mg-hydrochlorothiazide 12.5 mg tablet metformin 1,000 mg tablet 1,000 mg PO DAILY 09/15/19 09/15/19 naproxen 500 mg tablet 500 mg PO BID 09/15/19 09/15/19 omeprazole 20 mg tablet,delayed 20 mg PO DAILY 09/15/19 09/15/19 release paroxetine HCl 10 mg tablet 10 mg PO DAILY 09/15/19 09/15/19 Allergies Allergy/AdvReac Type Severity Reaction Status Date / Time clindamycin Allergy Rash Verified 05/10/22 16:22 Review of Systems Constitutional: Constitutional: Denies chills and Denies fever(s) ENT: Denies dysphagia, Denies nasal congestion and Denies sore throat Gastrointestinal: Gastrointestinal: Denies nausea and Denies vomiting Integumentary/Breasts: Skin/Breast: Reports erythema and Reports rash PMFSH Past Medical History Medical History Chronic GERD Depression Diabetes mellitus Insulin-dependent HTN (hypertension), malignant Hyperlipidemia Iron deficiency anemia Neuropathy Hands and feet secondary to diabetes Obesity Surgical History Surgical History H/O tubal ligation Family History Family History Mother Heart failure Diabetes mellitus Father Diabetes mellitus Hypertension Dementia Sibling Diabetes mellitus Social History Social History Social History: The patient told me that she is down to a couple cigarettes a day. She is single. She has 4 children. She is currently not employed. She does not have a durable power county attorney for health care and she desires to be a full code. She has a significant other. No marijuana or illicit drugs. No alcohol. Years smoked: 3 Smoking status: Current every day smoker Tobacco type: cigarettes Alcohol intake: never Substance use: never Substance use type: does not use Gender identity (if verbalized by the patient): Female Sexual Orientation (if Verbalized by the Patient): Straight or Heterosexual Exam Narrative: GENERAL: Well-appearing, well-nourished, and in no acute distress. HEAD: Normocephalic, atraumatic. ENT: Mucous membranes moist. No intraoral lesions. CHEST: Clear to auscultation. No respiratory distress. HEART: Regular rate and rhythm. Normal peripheral pulses. EXTREMITIES: Normal range of motion. No edema. SKIN: Warm, dry. Red warm rash is blanching diffusely across body. Between the breasts and upper chest there is sloughing of dry skin without weeping. Small areas of sloughing to the abdominal wall. NEURO: Alert and oriented x3. PSYCH: Normal mood and affect. Course Course Emergency Course: Discussed treatment plan patient verbalized understanding. Discussed continued discontinuation of medication. Patient with tai
[2022-05-10 17:57] VITALS: BP 139/85; PULSE 100; RESP 15; O2SAT 97
== END 2022-05-10 17:59 | disposition home or self-care (01) ==
PROVIDERS: Emergency Provider Emergency Medicine; PCP Internal Medicine
DX: L27.1 Localized skin eruption due to drugs and medicaments taken internally (principal); T36.8X5A Adverse effect of other systemic antibiotics, initial encounter; E11.9 Type 2 diabetes mellitus without complications; I10 Essential (primary) hypertension; E78.5 Hyperlipidemia, unspecified; F17.210 Nicotine dependence, cigarettes, uncomplicated
CPT/HCPCS: 99283; A9270

== ENCOUNTER 2022-07-03 11:52 | Emergency (ER) | payer MEDICARE, SELFPAY ==
[2022-07-03 11:56] VITALS: BP 105/57; PULSE 89; RESP 18; TEMP 36.6; O2SAT 100
--- NOTE | 2022-07-03 12:31 | ED.NAVMDI ---
HPI - Nausea/Vomiting/Diarrhea General Chief complaint: Nausea/Vomiting/Diarrhea Stated complaint: vomiking Time Seen by Provider: 07/03/22 12:23 History of Present Illness HPI Narrative: 51-year-old female presents with right upper quadrant pain and nausea x2 days. Patient states she has been throwing up everything she eats. Patient denies fevers, diarrhea. Patient states she cannot keep anything down. Patient states blood sugars have been in the 300. Patient denies history of abdominal issues. Patient states she had a tubal ligation 20 years ago. Patient takes metformin for diabetes. Onset (ago): day(s) (2) Description of vomiting: food contents Associated nausea: Yes Associated abdominal pain: Yes Related Data Home Medications Medication Instructions Recorded Confirmed Basaglar KwikPen U-100 Insulin 44 units HS 09/15/19 09/15/19 atorvastatin 10 mg tablet 10 mg PO DAILY 09/15/19 09/15/19 calcium carbonate 600 mg calcium 600 mg PO DAILY 09/15/19 09/15/19 (1,500 mg) tablet (Calcium) ferrous sulfate 325 mg (65 mg 325 mg PO DAILY 09/15/19 09/15/19 iron) tablet gabapentin 300 mg capsule 300 mg PO DAILY 09/15/19 09/15/19 lisinopril 20 1 tablet PO DAILY 09/15/19 09/15/19 mg-hydrochlorothiazide 12.5 mg tablet metformin 1,000 mg tablet 1,000 mg PO DAILY 09/15/19 09/15/19 naproxen 500 mg tablet 500 mg PO BID 09/15/19 09/15/19 omeprazole 20 mg tablet,delayed 20 mg PO DAILY 09/15/19 09/15/19 release paroxetine HCl 10 mg tablet 10 mg PO DAILY 09/15/19 09/15/19 Allergies Allergy/AdvReac Type Severity Reaction Status Date / Time clindamycin Allergy Rash Verified 05/10/22 16:22 Review of Systems Review of Systems: A 10 system review of systems was completed on the patient and is negative except for what is stated in the HPI. Nursing and ancillary documentation was reviewed. [facility] Past Medical History Medical History Chronic GERD Depression Diabetes mellitus Insulin-dependent HTN (hypertension), malignant Hyperlipidemia Iron deficiency anemia Neuropathy Hands and feet secondary to diabetes Obesity Surgical History Surgical History H/O tubal ligation Family History Family History Mother Heart failure Diabetes mellitus Father Diabetes mellitus Hypertension Dementia Sibling Diabetes mellitus Social History Social History Social History: The patient told me that she is down to a couple cigarettes a day. She is single. She has 4 children. She is currently not employed. She does not have a durable power city attorney for health care and she desires to be a full code. She has a significant other. No marijuana or illicit drugs. No alcohol. Years smoked: 3 Smoking status: Current every day smoker Tobacco type: cigarettes Alcohol intake: never Substance use: never Substance use type: does not use Gender identity (if verbalized by the patient): Female Sexual Orientation (if Verbalized by the Patient): Straight or Heterosexual Exam Narrative: GENERAL: Well-appearing, well-nourished, and in no acute distress. HEAD: Normocephalic, atraumatic. EYES: PERRLA and EOMI. ENT: Nares clear, no rhinorrhea or epistaxis. Mucous membranes moist. NECK: Supple. CHEST: Clear to auscultation. No respiratory distress. HEART: Regular rate and rhythm. No murmur heard. Normal peripheral pulses. ABDOMEN: Soft, tenderness to RUQ, nondistended, normal active bowel sounds. EXTREMITIES: Normal range of motion. No edema. SKIN: Warm, dry, no rash. NEURO: No focal deficits. Alert and oriented x3. PSYCH: Normal mood and affect. Course Course Emergency Course: Lab work here is negative. Patient's nausea improved with Zofran and fluids. Will discharge home with p.o. present for Miguel
[2022-07-03] MEDS: ONDANSETRON INJ 4 MG/2 ML VIAL IV PUSH (12:50)
[2022-07-03] MEDS: SODIUM CHLORIDE 0.9% IV 1,000 ML 999 ML IV CONT (12:51)
[2022-07-03 12:58] LABS: Basophils Percent Auto 0.2 % (0.2-1.2); Eosinophils Absolute Auto 0.2 K/mm3 (0-0.3); Eosinophils Percent Auto 2.6 % (0-4.4); Hematocrit 35.6 % (37.0-47.0); Immature Granulocyte Absolute 0.03 K/mm3 (0.00-0.031); Immature Granulocyte Percent A 0.4 % (0-0.5); Lymphocytes Absolute Auto 3.81 K/mm3 (0.9-3.2); Lymphocytes Percent Auto 45.6 % (18.3-44.2); Mean Corpuscular HGB Conc 33.7 g/dl (32-36); Mean Corpuscular Hemoglobin 28.8 pg (26-34); Mean Corpuscular Volume 85.6 fl (80-100); Mean Platelet Volume 9.8 fl (7.4-10.4); Monocytes Absolute Auto 0.6 K/mm3 (0.1-0.6); Monocytes Percent Auto 7.2 % (2.6-8.5); Neutrophils Absolute Auto 3.7 K/mm3 (1.3-6.7); Platelet Count Result 338 k/mm3 (150-375); Red Blood Count 4.16 M/mm3 (4.2-5.4); Red Cell Distribution Width 12.3 % (11.5-14.5); White Blood Count 8.4 K/mm3 (4.5-10.0)
[2022-07-03 13:07] LABS: Lactic Acid Reflex 1.3 mmol/L (0.7-2.0)
[2022-07-03 13:09] LABS: Alanine Aminotransferase 24 U/L (6-35); Albumin Level 4.4 g/dL (3.5-5.1); Alkaline Phosphatase 87 U/L (38-126); Anion Gap 8 mmol/L (8-16); Aspartate Amino Transferase 28 U/L (14-36); Bilirubin,Total 0.5 mg/dL (0.2-1.3); Blood Urea Nitrogen 39 mg/dL (7-17); Calcium 9.9 mg/dL (8.4-10.2); Carbon Dioxide 29 mmol/L (22-30); Chloride 103 mmol/L (98-107); Estimated CRCL calculation 92 ml/min; Estimated Glomerular Filt Rate > 60; Glucose 100 mg/dL (65-110); Lipase 36 U/L (23-300); Magnesium 1.7 mg/dL (1.6-2.3); Potassium 3.8 mmol/L (3.4-5.0); Sodium 140 mmol/L (137-145)
[2022-07-03 13:26] LABS: Fractional Inspired Oxygen 21 %; HCO3 VBG 22.3 mEq/l (24.0-30.0); PCO2 VBG 36.5 mmHg (42.0-48.0); PO2 VBG 72.7 mmHg (35.0-45.0)
[2022-07-03 13:27] LABS: Device ROOM AIR; pH VBG 7.403 (7.300-7.400)
[2022-07-03 14:05] VITALS: BP 113/73; PULSE 76; RESP 16
[2022-07-03 14:14] LABS: Hemoglobin A1C > 14.0 % (<5.7)
== END 2022-07-03 14:07 | disposition home or self-care (01) ==
PROVIDERS: Emergency Provider Nurse Practitioner Family
DX: K52.9 Noninfective gastroenteritis and colitis, unspecified (principal); R11.2 Nausea with vomiting, unspecified; F17.210 Nicotine dependence, cigarettes, uncomplicated; K21.9 Gastro-esophageal reflux disease without esophagitis; F32.A Depression, unspecified; E11.9 Type 2 diabetes mellitus without complications; Z79.4 Long term (current) use of insulin; I10 Essential (primary) hypertension; E78.5 Hyperlipidemia, unspecified; D64.9 Anemia, unspecified
CPT/HCPCS: 36415; 80053; 82803; 83036; 83605; 83690; 83735; 85025; 96361; 96374; 99284; J2405; J7030

== ENCOUNTER 2022-07-13 15:55 | Emergency (ER) | payer MEDICARE, MEDICAID, SELFPAY ==
[2022-07-13 16:09] VITALS: BP 161/80; PULSE 90; RESP 14; TEMP 36.9; O2SAT 100
--- NOTE | 2022-07-13 16:20 | ED.DIZZY ---
HPI - Dizziness General Chief Complaint: Dizziness Stated Complaint: Dizziness/Weakness Time Seen by Provider: 07/13/22 16:20 Source: patient Mode of arrival: ambulatory Limitations: no limitations History of Present Illness HPI Narrative: Patient is a 51-year-old female who presents with dizziness last week while taking Keflex. Patient states she is not taking Keflex and has not had any dizziness since besides earlier today when she was out in the heat. Patient states she sat down and drink some cold water and cooled off and dizziness resolved. Denies any changes in vision or syncope. Patient reports wound on right foot has resolved. States she needs a note to return to work. Denies any numbness, tingling or weakness to extremities. Related Data Home Medications Medication Instructions Recorded Confirmed Basdonaldo AngélicajosePen U-100 Insulin 44 units HS 09/15/19 07/13/22 atorvastatin 10 mg tablet 10 mg PO DAILY 09/15/19 07/13/22 calcium carbonate 600 mg calcium 600 mg PO DAILY 09/15/19 07/13/22 (1,500 mg) tablet (Calcium) ferrous sulfate 325 mg (65 mg 325 mg PO DAILY 09/15/19 07/13/22 iron) tablet gabapentin 300 mg capsule 300 mg PO DAILY 09/15/19 07/13/22 lisinopril 20 1 tablet PO DAILY 09/15/19 07/13/22 mg-hydrochlorothiazide 12.5 mg tablet metformin 1,000 mg tablet 1,000 mg PO DAILY 09/15/19 07/13/22 paroxetine HCl 10 mg tablet 10 mg PO DAILY 09/15/19 07/13/22 allopurinol 100 mg tablet 100 mg PO BID 07/13/22 07/13/22 montelukast 10 mg tablet 10 mg PO DAILY 07/13/22 07/13/22 pantoprazole 20 mg tablet,delayed 20 mg PO DAILY 07/13/22 07/13/22 release semaglutide 3 mg tablet (Rybelsus) mg PO 07/13/22 Allergies Allergy/AdvReac Type Severity Reaction Status Date / Time clindamycin Allergy Rash Verified 07/13/22 16:01 Review of Systems Review of Systems: All systems reviewed & are unremarkable except as noted in HPI and below Constitutional: Constitutional: Denies body ache(s), Denies chills, Denies fatigue, Denies fever(s), Denies headache(s), Denies malaise and Denies weakness Eyes: Eyes: Denies blurry vision, Denies irritation and Denies loss of vision ENT: Denies otalgia, Denies headache(s), Denies nasal discharge, Denies sinus pain and Denies sore throat Cardiovascular: Cardiovascular: Denies chest pain, Denies irregular heart rhythm and Denies dyspnea Respiratory: Respiratory: Denies dyspnea Gastrointestinal: Gastrointestinal: Denies abdominal pain, Denies melena, Denies hematochezia, Denies diarrhea, Denies nausea and Denies vomiting Musculoskeletal: Musculoskeletal: Denies back pain, Denies myalgias and Denies arthralgias Integumentary/Breasts: Skin/Breast: Denies pruritus and Denies rash Neurologic: Reports dizziness, Denies headache(s), Denies loss of vision and Denies weakness Psychiatric: Psychiatric: Reports no additional psychiatric complaints Endocrine: Endocrine: Denies fatigue PMFSH Past Medical History Medical History Chronic GERD Depression Diabetes mellitus Insulin-dependent HTN (hypertension), malignant Hyperlipidemia Iron deficiency anemia Neuropathy Hands and feet secondary to diabetes Obesity Surgical History Surgical History H/O tubal ligation Family History Family History Mother Heart failure Diabetes mellitus Father Diabetes mellitus Hypertension Dementia Sibling Diabetes mellitus Social History Social History Social History: The patient told me that she is down to a couple cigarettes a day. She is single. She has 4 children. She is currently not employed. She does not have a durable power compliance attorney for health care and she desires to be a full code. She has a significant other. No marijuana or illicit drugs. No alcohol. Years smoked: 3 Smokin
[2022-07-13 16:27] LABS: Glucose Point of Care 286 mg/dl (65-105)
== END 2022-07-13 16:50 | disposition home or self-care (01) ==
PROVIDERS: Emergency Provider Nurse Practitioner Family; PCP Internal Medicine
DX: R42 Dizziness and giddiness (principal); T36.1X5A Adverse effect of cephalosporins and other beta-lactam antibiotics, initial encounter; K21.9 Gastro-esophageal reflux disease without esophagitis; E11.42 Type 2 diabetes mellitus with diabetic polyneuropathy; Z79.4 Long term (current) use of insulin; I10 Essential (primary) hypertension; E78.5 Hyperlipidemia, unspecified; D50.9 Iron deficiency anemia, unspecified; E66.9 Obesity, unspecified; Z68.37 Body mass index [BMI] 37.0-37.9, adult
CPT/HCPCS: 82948; 99212; G0463

== ENCOUNTER 2023-05-02 17:48 | Emergency (ER) | payer MEDICARE, MEDICAID, SELFPAY ==
--- NOTE | ~2023-05-02 | XR_ITS ---
EXAMINATION: XR chest 2V DATE: 05/02/2023 18:54 INDICATION: Dizziness. TECHNIQUE: Frontal and lateral views of the chest were obtained. COMPARISON: Chest single view 01/15/2022 FINDINGS: There is no pneumonia, pleural effusion, or pneumothorax. The heart size is normal. IMPRESSION: 1. No acute cardiopulmonary disease. Reviewed, dictated and finalized at location E. MACHINE MECHANIC
--- NOTE | 2023-05-02 17:51 | ECG_ITS ---
Measurements Intervals [place] Rate: 89 P: 44 LA: 166 QRS: 21 QRSD: 90 T: 44 QT: 355 QTc: 433 Interpretive Statements SINUS RHYTHM BORDERLINE R WAVE PROGRESSION, ANTERIOR LEADS CONSIDER INFERIOR INFARCT, AGE INDETERMINATE BASELINE ARTIFACT- I, II, III, AVR, AVL, AVF ABNORMAL ECG NO PREVIOUS ECG AVAILABLE FOR COMPARISON Electronically Signed On 05-02-2023 20:05:40 PETROLEUM ANALYST by Kt Ramon D.O.
--- NOTE | 2023-05-02 17:52 | ED.DIZZY ---
HPI - Dizziness General Chief Complaint: Dizziness <Maddy Christian PA-C - Last Filed: 05/04/23 18:41> Stated Complaint: periods of dizziness <Maddy Christian PA-C - Last Filed: 05/04/23 18:41> Time Seen by Provider: 05/02/23 17:52 <Maddy Christian PA-C - Last Filed: 05/04/23 18:41> Focused HPI: This is a 52 year old female that presents to the ER for dizziness. Ongoing today. Reports history of DM. She has not been able to check her blood sugar. Reports she feels like the room is spinning. Denies chest pain, shortness of breath or vomiting. GENERAL: Well-appearing, well-nourished, and in no acute distress. HEAD: Normocephalic, atraumatic. CHEST: No respiratory distress. HEART: Regular rate NEURO: ?Alert and oriented x3. Patient screened in triage and initial orders placed.? ?Additional care and disposition to be based upon?diagnostic testing and treatment. <Maddy Christian PA-C - Last Filed: 05/04/23 18:41> Focused HPI: This is a 52 year old female that presents to the ER for dizziness. Ongoing today. Reports history of DM. She has not been able to check her blood sugar. Reports she feels like the room is spinning. Denies chest pain, shortness of breath or vomiting. Patient also states that she has not been drinking as much water as she should be and is concerned that she is dehydrated. When further questioned regarding her dizziness, patient states that it is more of a lightheaded near syncopal episode rather than a room spinning episode. Patient also complaining of constipation. She does take daily iron pills. She is currently denying any neurological symptoms including any focal weakness, changes in vision, numbness and/or tingling. There are no other modifying, alleviating, or precipitating factors at this time. GENERAL: Well-appearing, well-nourished, and in no acute distress. HEAD: Normocephalic, atraumatic. CHEST: No respiratory distress. HEART: Regular rate NEURO: ?Alert and oriented x3. Patient screened in triage and initial orders placed.? ?Additional care and disposition to be based upon?diagnostic testing and treatment. <Esperanza Suarez MD - Last Filed: 05/03/23 05:28> Related Data Home Medications: Home Medications Medication Instructions Recorded Confirmed Chava Vinson U-100 Insulin 44 units HS 09/15/19 07/13/22 atorvastatin 10 mg tablet 10 mg PO DAILY 09/15/19 07/13/22 calcium carbonate 600 mg calcium 600 mg PO DAILY 09/15/19 07/13/22 (1,500 mg) tablet (Calcium) ferrous sulfate 325 mg (65 mg 325 mg PO DAILY 09/15/19 07/13/22 iron) tablet gabapentin 300 mg capsule 300 mg PO DAILY 09/15/19 07/13/22 lisinopril 20 1 tablet PO DAILY 09/15/19 07/13/22 mg-hydrochlorothiazide 12.5 mg tablet metformin 1,000 mg tablet 1,000 mg PO DAILY 09/15/19 07/13/22 paroxetine HCl 10 mg tablet 10 mg PO DAILY 09/15/19 07/13/22 allopurinol 100 mg tablet 100 mg PO BID 07/13/22 07/13/22 montelukast 10 mg tablet 10 mg PO DAILY 07/13/22 07/13/22 pantoprazole 20 mg tablet,delayed 20 mg PO DAILY 07/13/22 07/13/22 release semaglutide 3 mg tablet (Rybelsus) mg PO 07/13/22 <Maddy Christian PA-C - Last Filed: 05/04/23 18:41> Allergies/Adverse Reactions: Allergies Allergy/AdvReac Type Severity Reaction Status Date / Time clindamycin Allergy Rash Verified 07/13/22 16:01 <Maddy Christian PA-C - Last Filed: 05/04/23 18:41> Review of Systems Review of Systems: All systems are reviewed and are negative unless stated otherwise in the HPI. <Esperanza Suarez MD - Last Filed: 05/03/23 05:28> PMFSH Past Medical History Medical History: Medical History Chronic GERD Depression Diabetes mellitus Insulin-dependent HTN (hypertension), malignant Hyperlipidemia Iron deficiency anemia Neuropathy Hands and feet secondary to diabetes Obesity <Maddy Christian PA-C - Last Filed: 05/04/23 18:41> [facility]
[2023-05-02 18:41] LABS: Basophils Percent Auto 0.5 % (0.2-1.2); Eosinophils Absolute Auto 0.3 K/mm3 (0-0.3); Eosinophils Percent Auto 2.9 % (0-4.4); Hematocrit 41.1 % (37.0-47.0); Hemoglobin 13.1 g/dL (12.0-15.0); Immature Granulocyte Absolute 0.02 K/mm3 (0.00-0.031); Immature Granulocyte Percent A 0.2 % (0-0.5); Lymphocytes Absolute Auto 4.26 K/mm3 (0.9-3.2); Lymphocytes Percent Auto 48.7 % (18.3-44.2); Mean Corpuscular HGB Conc 31.9 g/dl (32-36); Mean Corpuscular Hemoglobin 28.3 pg (26-34); Mean Corpuscular Volume 88.8 fl (80-100); Mean Platelet Volume 10.5 fl (7.4-10.4); Monocytes Absolute Auto 0.6 K/mm3 (0.1-0.6); Monocytes Percent Auto 7.2 % (2.6-8.5); Neutrophils Absolute Auto 3.6 K/mm3 (1.3-6.7); Neutrophils Percent Auto 40.5 % (45.5-73.1); Platelet Count Result 333 k/mm3 (150-375); Red Blood Count 4.63 M/mm3 (4.2-5.4); Red Cell Distribution Width 12.9 % (11.5-14.5); White Blood Count 8.8 K/mm3 (4.5-10.0)
[2023-05-02 18:50] LABS: Prothrombin Time 13.2 Seconds (11.1-14.7)
[2023-05-02 18:51] LABS: Partial Thromboplastin Time 26.6 SECONDS (22.3-36.8)
[2023-05-02 18:52] LABS: Alanine Aminotransferase 22 U/L (6-35); Albumin Level 4.1 g/dL (3.5-5.1); Alkaline Phosphatase 97 U/L (38-126); Anion Gap 6 mmol/L (8-16); Aspartate Amino Transferase 28 U/L (14-36); Bilirubin,Total 0.4 mg/dL (0.2-1.3); Blood Urea Nitrogen 38 mg/dL (7-17); Calcium 9.4 mg/dL (8.4-10.2); Carbon Dioxide 31 mmol/L (22-30); Chloride 104 mmol/L (98-107); Estimated CRCL calculation 80 ml/min; Estimated Glomerular Filt Rate > 60; Glucose 150 mg/dL (65-110); Potassium 4.1 mmol/L (3.4-5.0); Sodium 141 mmol/L (137-145)
[2023-05-03] MEDS: SODIUM CHLORIDE 0.9% IV 1,000 ML 999 ML IV CONT (01:13)
[2023-05-03 02:00] VITALS: BP 129/91; PULSE 79; RESP 15; O2SAT 99
[2023-05-03 02:15] VITALS: BP 151/97; PULSE 78; RESP 15; O2SAT 100
[2023-05-03 02:43] VITALS: BP 135/79; PULSE 78; RESP 17; O2SAT 100
[2023-05-03 02:45] VITALS: BP 107/76; PULSE 81; RESP 15; O2SAT 99
== END 2023-05-03 02:47 | disposition home or self-care (01) ==
PROVIDERS: Physician Assistant; Emergency Provider Emergency Medicine; PCP Internal Medicine
DX: E86.0 Dehydration (principal); R42 Dizziness and giddiness; K59.03 Drug induced constipation; T45.4X5A Adverse effect of iron and its compounds, initial encounter; I10 Essential (primary) hypertension; E78.5 Hyperlipidemia, unspecified; E11.40 Type 2 diabetes mellitus with diabetic neuropathy, unspecified; E66.9 Obesity, unspecified; Z68.38 Body mass index [BMI] 38.0-38.9, adult; D50.9 Iron deficiency anemia, unspecified; K21.9 Gastro-esophageal reflux disease without esophagitis; F32.A Depression, unspecified; F17.210 Nicotine dependence, cigarettes, uncomplicated; Z79.4 Long term (current) use of insulin; Z79.84 Long term (current) use of oral hypoglycemic drugs; R94.31 Abnormal electrocardiogram [ECG] [EKG]
CPT/HCPCS: 36415; 71046; 80053; 85025; 85610; 85730; 93005; 96360; 99283; J7030

== ENCOUNTER 2023-08-31 12:19 | Emergency (ER) | payer MEDICARE, OTHER, MEDICAID, SELFPAY ==
--- NOTE | ~2023-08-31 | XR_ITS ---
EXAMINATION: XR hip LT 2V w AP pelvis DATE: 08/31/2023 14:12 INDICATION: Left groin and hip pain. TECHNIQUE: An anteroposterior view of the pelvis and 2 views of left hip were obtained. COMPARISON: None. FINDINGS: Bone alignment is normal. No fracture. There is mild osteoarthritis of the hips. There is a t least mild lumbar spondylosis. IMPRESSION: 1. Mild osteoarthritis of the hips. Reviewed, dictated and finalized at location A.
[2023-08-31 12:21] VITALS: BP 138/68; PULSE 78; RESP 16; TEMP 36.7; O2SAT 100
[2023-08-31 14:08] LABS: Appearance Urine Clear (Clear); Bilirubin Urine Negative (Negative); Blood Urine Negative (Negative); Color Urine Yellow (Yellow); Glucose Urine UA 3+ mg/dL (Negative); Ketones Urine Negative (Negative); Leukocyte Esterase Ur Negative LEU/UL (Negative); Nitrate Urine Negative (Negative); Protein Urine Negative (Negative); Specific Grav Ur 1.035 (1.001-1.035)
[2023-08-31 14:34] LABS: Add Urine Microscopic? NO
--- NOTE | 2023-08-31 14:41 | ED.GENADULT ---
HPI - General Adult General Chief complaint: Extremity Injury, Lower Stated complaint: left hip and leg pain Time Seen by Provider: 08/31/23 13:36 History of Present Illness HPI narrative: Patient is a 52-year-old female who presents to the emergency department this afternoon complaining of left hip pain. Patient states that she does have a history of osteoarthritis and normally this is managed by a combination of naproxen and acetaminophen. SHe was never told that she has osteoarthritis of her hip joints and is now concerned that her osteoarthritis has reached her hips. Patient states that today she took some acetaminophen which helped with the pain but did not completely resolve it and that she is still uncomfortable. She is also requesting something stronger for pain other than the naproxen and Tylenol as she continues to have pain despite taking these [id number] medications and wants something stronger to help her get over this flare. She denies any urinary symptoms including dysuria or hematuria but is requesting to be checked for urinary tract infection as well. No additional symptoms or concerns at this time. Related Data Home Medications Medication Instructions Recorded Confirmed Chava Vinson U-100 Insulin 44 units HS 09/15/19 07/13/22 atorvastatin 10 mg tablet 10 mg PO DAILY 09/15/19 07/13/22 calcium carbonate (Calcium 600) 600 mg PO DAILY 09/15/19 07/13/22 ferrous sulfate 325 mg (65 mg 325 mg PO DAILY 09/15/19 07/13/22 iron) tablet gabapentin 300 mg capsule 300 mg PO DAILY 09/15/19 07/13/22 lisinopril 20 1 tablet PO DAILY 09/15/19 07/13/22 mg-hydrochlorothiazide 12.5 mg tablet metformin 1,000 mg tablet 1,000 mg PO DAILY 09/15/19 07/13/22 paroxetine HCl 10 mg tablet 10 mg PO DAILY 09/15/19 07/13/22 allopurinol 100 mg tablet 100 mg PO BID 07/13/22 07/13/22 montelukast 10 mg tablet 10 mg PO DAILY 07/13/22 07/13/22 pantoprazole 20 mg tablet,delayed 20 mg PO DAILY 07/13/22 07/13/22 release semaglutide 3 mg tablet (Rybelsus) mg PO 07/13/22 Allergies Allergy/AdvReac Type Severity Reaction Status Date / Time clindamycin Allergy Rash Verified 07/13/22 16:01 Review of Systems Review of Systems: All systems are reviewed and are negative unless stated otherwise in the HPI. 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 She is single. She has 4 children. She is currently not employed. She does not have a durable power workers compensation defense attorney for health care and she desires to be a full code. She has a significant other. No marijuana or illicit drugs. No alcohol. Years smoked: 3 Smoking status: Current every day smoker Tobacco type: cigarettes Alcohol intake: never Substance use: never Substance use type: does not use Gender identity (if verbalized by the patient): Female Sexual Orientation (if Verbalized by the Patient): Straight or Heterosexual Exam Narrative: General: Alert, awake, afebrile, in no acute distress. HEENT: PERRL, no rhinorrhea, no post nasal drip, oropharynx clear. Cardiovascular: Regular rate and rhythm, no murmurs, rubs or gallops, no peripheral edema. Respiratory: Clear to auscultation bilaterally, no tachypnea, no wheezing, no rhonchi, no rubs
== END 2023-08-31 14:54 | disposition home or self-care (01) ==
PROVIDERS: Emergency Provider Emergency Medicine; PCP Internal Medicine
DX: M16.12 Unilateral primary osteoarthritis, left hip (principal); I10 Essential (primary) hypertension; E11.40 Type 2 diabetes mellitus with diabetic neuropathy, unspecified; E78.5 Hyperlipidemia, unspecified; E66.9 Obesity, unspecified; Z68.36 Body mass index [BMI] 36.0-36.9, adult; K21.9 Gastro-esophageal reflux disease without esophagitis; D50.9 Iron deficiency anemia, unspecified; F17.210 Nicotine dependence, cigarettes, uncomplicated; Z79.4 Long term (current) use of insulin; Z79.84 Long term (current) use of oral hypoglycemic drugs; Z79.899 Other long term (current) drug therapy
CPT/HCPCS: 73502; 81003; 99283

== ENCOUNTER 2023-11-17 08:51 | Emergency (ER) | payer OTHER, MEDICARE, MEDICAID, SELFPAY ==
--- NOTE | ~2023-11-17 | XR_ITS ---
EXAMINATION: XR foot LT min 3V DATE: 11/17/2023 10:02 INDICATION: Left second toe wound. TECHNIQUE: 4 views of left foot were obtained. COMPARISON: None. FINDINGS: Bone alignment is normal. No fracture. There is mild osteoarthritis of first metatarsophala ngeal joint and some of the midfoot joints. There are enthesophytes at the posterior and plantar aspe cts of calcaneal tuberosity. IMPRESSION: 1. Mild polyarticular osteoarthritis. 2. No evidence of osteomyelitis. Reviewed, dictated and finalized at location A.
[2023-11-17 09:04] VITALS: BP 138/87; PULSE 86; RESP 18; TEMP 36.8; O2SAT 99
[2023-11-17] MEDS: HYDROcodone/acetaminophen (*CRX) 5-325 MG TABLET 1 TAB PO (10:00)
--- NOTE | 2023-11-17 10:45 | ED.GENADULT ---
HPI - General Adult General Chief complaint: Wound/Laceration Stated complaint: possible insect bite Time Seen by Provider: 11/17/23 09:26 History of Present Illness HPI narrative: This is a 52-year-old female presenting to the ED with 2 complaints. First complaint is insect bite underneath her right breast. She noticed pain and swelling. She has never had an abscess before. Second complaint is pain in her left 2nd toe. Patient denies any trauma. She says that her toenail fell off. No ulcerations signs of infection. Patient denies fevers chills nausea vomiting diarrhea. No abdominal pain. She is compliant with diabetes medications. Related Data Home Medications Medication Instructions Recorded Confirmed Basaglar AngélicaikPen U-100 Insulin 44 units HS 09/15/19 07/13/22 atorvastatin 10 mg tablet 10 mg PO DAILY 09/15/19 07/13/22 calcium carbonate (Calcium 600) 600 mg PO DAILY 09/15/19 07/13/22 ferrous sulfate 325 mg (65 mg 325 mg PO DAILY 09/15/19 07/13/22 iron) tablet gabapentin 300 mg capsule 300 mg PO DAILY 09/15/19 07/13/22 lisinopril 20 1 tablet PO DAILY 09/15/19 07/13/22 mg-hydrochlorothiazide 12.5 mg tablet metformin 1,000 mg tablet 1,000 mg PO DAILY 09/15/19 07/13/22 paroxetine HCl 10 mg tablet 10 mg PO DAILY 09/15/19 07/13/22 allopurinol 100 mg tablet 100 mg PO BID 07/13/22 07/13/22 montelukast 10 mg tablet 10 mg PO DAILY 07/13/22 07/13/22 pantoprazole 20 mg tablet,delayed 20 mg PO DAILY 07/13/22 07/13/22 release semaglutide 3 mg tablet (Rybelsus) mg PO 07/13/22 Allergies Allergy/AdvReac Type Severity Reaction Status Date / Time clindamycin Allergy Rash Verified 11/17/23 09:21 [facility] Past Medical History Medical History Chronic GERD Depression Diabetes mellitus Insulin-dependent HTN (hypertension), malignant Hyperlipidemia Iron deficiency anemia Neuropathy Hands and feet secondary to diabetes Obesity Surgical History Surgical History H/O tubal ligation Family History Family History Mother Heart failure Diabetes mellitus Father Diabetes mellitus Hypertension Dementia Sibling Diabetes mellitus Social History Social History Social History: The patient told me that she is down to a couple cigarettes a day. She is single. She has 4 children. She is currently not employed. She does not have a durable power application tester for health care and she desires to be a full code. She has a significant other. No marijuana or illicit drugs. No alcohol. Years smoked: 3 Smoking status: Current every day smoker Tobacco type: cigarettes Alcohol intake: never Substance use: never Substance use type: does not use Gender identity (if verbalized by the patient): Female Sexual Orientation (if Verbalized by the Patient): Straight or Heterosexual Exam Narrative: APPEARANCE: No apparent distress. Head: atraumatic. EYES: EOMI, NOSE: Atraumatic NECK: Trachea midline RESPIRATORY: No increased rate of breathing CARDIOVASCULAR: RRR, ABDOMINAL: Soft nontender no guarding rebound, underneath right breast there is an area of induration and fluctuance consistent with abscess, 1 cm x 2 cm MUSCULOSKELETAl: Focal exam of the left foot revealed no ulceration or signs of infection. Her left toenail of her 2nd toe is broken and shortened NEURO: Alert. Moving 4/4 extremities SKIN:: Warm, dry. Normal color PSYCHIATRIC: Normal affect Course Vital Signs Vital signs: Vital Signs Temperature 98.2 F 11/17/23 09:04 Pulse Rate 86 11/17/23 09:04 Respiratory Rate 18 11/17/23 09:04 Blood Pressure 138/87 11/17/23 09:04 Pulse Oximetry 99 11/17/23 09:04 Oxygen Delivery Room Air 11/17/23 09:04 Temperature 98.2 F 11/17/23 09:04 Pulse Rate 86
[2023-11-17 10:47] LABS: Glucose Point of Care 393 mg/dl (65-105)
[2023-11-17 11:18] VITALS: BP 154/93; PULSE 79; RESP 18; TEMP 36.8; O2SAT 97
== END 2023-11-17 11:20 | disposition home or self-care (01) ==
PROVIDERS: Emergency Provider Emergency Medicine; PCP Internal Medicine
DX: N61.1 Abscess of the breast and nipple (principal); M79.675 Pain in left toe(s); I10 Essential (primary) hypertension; E78.5 Hyperlipidemia, unspecified; E11.40 Type 2 diabetes mellitus with diabetic neuropathy, unspecified; E66.9 Obesity, unspecified; Z68.41 Body mass index [BMI] 40.0-44.9, adult; D50.9 Iron deficiency anemia, unspecified; K21.9 Gastro-esophageal reflux disease without esophagitis; F17.210 Nicotine dependence, cigarettes, uncomplicated; Z79.4 Long term (current) use of insulin; Z79.84 Long term (current) use of oral hypoglycemic drugs; Z79.899 Other long term (current) drug therapy; M19.072 Primary osteoarthritis, left ankle and foot
CPT/HCPCS: 73630; 82948; 99283; A9270